=== PATIENT | female | born 1975 | race Caucasian/White ===

== ENCOUNTER 2017-04-10 14:20 | Emergency (ER) | payer OTHER ==
[~2017-04-10] VITALS: Ht 165.1 cm; Wt 68.0 kg
[2017-04-10] MEDS ORDERED: DEXAMETHASONE 4 MG TABLET PO ONE (14:30)
[2017-04-10] MEDS ORDERED: DEXAMETHASONE 4 MG TABLET ONE (14:56)
--- NOTE | 2017-04-10 15:38 | NUR ---
Patient discharged to home in stable conditon. Written and verbal after care instructions given. Patient verbalizes understanding of instructions.pt walks in steady gait. Addendum: 04/10/17 at 1539 by MARYANN pt has no difficulty swallowing own saliva.
== END 2017-04-10 15:49 | disposition home or self-care (01) ==
LOC: ER 14:20
DX: J02.9 Acute pharyngitis, unspecified (principal); F32.9 Major depressive disorder, single episode, unspecified; I10 Essential (primary) hypertension
CPT/HCPCS: A4663; J8540